=== PATIENT | male | born 1955 | race Caucasian/White ===

== ENCOUNTER 2018-03-26 22:10 | Emergency (ER) | payer OTHER ==
[2018-03-26] MEDS ORDERED: Lactated Ringers 1,000 ML IV ONE (22:15)
--- NOTE | 2018-03-26 22:21 | EDM.PDOC ---
ED HPI GENERAL MEDICAL PROBLEM - General Chief Complaint: General Stated Complaint: ILLNESS Time Seen by Provider: 03/26/18 22:10 Source of Information: Reports: Patient, EMS History Limitations: Reports: Other (no old records) - History of Present Illness INITIAL COMMENTS - FREE TEXT/NARRATIVE: 63 yo male here via EMS. He began the day with a heavy nose bleed from 6 am until noon. After the nose bleed he developed a cough and some [place], no fever. This afternoon he has had nausea and light-headedness whenever he gets up. He denies chest pain. Is visiting from out of town. Gets nose bleeds fairly often, is not on any anticoagulants or anti-platelet agents. No black or bloody stools. No abdominal pain or bloating. Onset: Today Onset Date: 03/26/18 Duration: Hour(s): Location: Reports: Face (nose bleed, self-limiting) Severity: Moderate Improves with: Reports: Rest Worsens with: Reports: Other (standing) Context: Reports: Other (uncertain) Associated Symptoms: Reports: Cough (since the nose bleed.), Nausea/Vomiting ( especially if he tries to eat/drink), Shortness of Breath (with exertion), Syncope (brief with getting up). Denies: Confusion, Chest Pain, Diaphoresis, Fever/Chills, Headaches, Rash, Seizure Treatments PRUNER: Reports: Other (see below) (Zofran ODT per EMS, reduced nausea) - Related Data Allergies Allergy/AdvReac Type Severity Reaction Status Date / Time No Known Allergies Allergy Verified 03/26/18 22:16 Home Meds: Home Meds ARIPiprazole [Abilify] 5 mg PO DAILY 03/26/18 [History] Amphetamine/Dextroamphetamine [Adderall] 10 mg PO BID 03/26/18 [History] Escitalopram [Lexapro] 1.5 tab PO DAILY 03/26/18 [History] Fluvastatin Sodium 40 mg PO BEDTIME 03/26/18 [History] Hydrochlorothiazide/Lisinopril [Lisinopril/HCTZ 20-12.5 MG] 1 tab PO DAILY 03/26 [History] Pantoprazole Sodium [Protonix] 40 mg PO DAILY 03/26/18 [History] Propranolol [Inderal] 10 mg PO TID 03/26/18 [History] Zolpidem Tartrate [Ambien] 5 mg PO BEDTIME 03/26/18 [History] hydrOXYzine HCl [Atarax] 1 - 2 tab PO TID PRN 03/26/18 [History] ED ROS GENERAL - Review of Systems Review Of Systems: See Below Constitutional: Reports: Weakness. Denies: Fever, Chills HEENT: Reports: Nosebleed (not since noon today.). Denies: Vertigo Respiratory: Reports: Shortness of Breath (with exertion), Cough (since his nose bleed). Denies: Wheezing, Pleuritic Chest Pain, Sputum, Hemoptysis Cardiovascular: Reports: Lightheadedness (with standing) Endocrine: Reports: No Symptoms GI/Abdominal: Reports: Nausea, Vomiting. Denies: Abdominal Pain, Black Stool, Bloody Stool, Constipation (no BM today), Diarrhea, Distension, Hematemesis, Hematochezia, Melena : Reports: No Symptoms Musculoskeletal: Reports: No Symptoms Skin: Reports: No Symptoms Neurological: Reports: No Symptoms Psychiatric: Reports: No Symptoms ED EXAM, GENERAL - Physical Exam Exam: See Below Exam Limited By: No Limitations General Appearance: Alert, WD/WN, No Apparent Distress Eye Exam: Bilateral Eye: Normal Inspection, PERRL Ears: Normal External Exam, Normal Canal, Hearing Grossly Normal Ear Exam: Bilateral Ear: Auricle Normal, Canal Normal Nose: Normal Inspection, Normal Mucosa, No Blood. No: Nasal Tenderness Throat/Mouth: Normal Inspection, Normal Lips, Normal Oropharynx, Normal Voice, No Airway Compromise Head: Atraumatic, Normocephalic Neck: Normal Inspection Respiratory/Chest: No Respiratory Distress, Lungs Clear, Normal Breath Sounds, No Accessory Muscle Use Cardiovascular: Regular Rate, Rhythm, No Edema GI/Abdominal: Normal Bowel Sounds, Soft, Non-Tender, No Distention Back Exam: Normal Inspection. No: CVA Tenderness (R), CVA Tenderness (L) Extremities: Normal Inspection, Normal Range of Motion, Non-Tender, No Pedal Edema Neurological: Alert, Oriented, CN II-XII Intact, Normal Cognition, No Motor/ Sensory Deficits Psychiatric: Normal Affect, Normal Mood Skin Exam: Warm, Dry, Intact, Normal Color, No Rash Lymphatic: No Adenopathy EKG INTERPRETATION EKG Date: 03/26/18 Time: 23:45 Rhythm: NSR Rate (Beats/Min): 66 [place]: Normal P-Wave: Present QRS: Normal ST-T: Normal QT: Normal Comparison: NA - No Prior EKG EKG Interpretation Comments: ? Tiny Q waves in inferior leads. Course - Vital Signs Last Recorded V/S: Last Vital Signs Temp 35.0 C L 03/26/18 22:19 Pulse 68 03/26/18 23:14 Resp 18 03/26/18 23:14 BP 116/39 L 03/26/18 23:14 Pulse Ox 96 03/26/18 23:14 - Orders/Labs/Meds Orders: Active Orders 24 hr Category Date Time Status EKG Documentation Completion [RC] ASDIRECTED Care 03/26/18 23:37 Active UA W/MICROSCOPIC [URIN] Stat Lab 03/26/18 22:15 Ordered EKG 12 Lead [EK] Routine Ther 03/26/18 23:36 Ordered Labs: Laboratory Tests 03/26/18 03/26/18 03/26/18 Range/Units 22:15 22:15 22:16 WBC 13.8 H (4.5-11.0) K/uL RBC 5.00 (4.30-5.90) M/uL Hgb 14.7 (12.0-15.0) g/dL Hct 42.4 (40.0-54.0) % MCV 85 (80-98) fL MCH 29 (27-31) pg MCHC 35 (32-36) % Plt Count 212 (150-400) K/uL Sodium 139 L (140-148) mmol/L Potassium 5.2 (3.6-5.2) mmol/L Chloride 104 (100-108) mmol/L Carbon Dioxide 28 (21-32) mmol/L Anion Gap 12.2 (5.0-14.0) mmol/L BUN 32 H (7-18) mg/dL Creatinine 1.4 H (0.8-1.3) mg/dL Est Cr Clr Drug Dosing 57.21 mL/min Estimated GFR (MDRD) 52 L (>60) Glucose 121 H (74-106) mg/dL Calcium 9.0 (8.5-10.1) mg/dL Troponin I 0.078 H* (0.000-0.056) ng/mL Meds: Medications Discontinued Medications Generic Name Dose Route Start Last Admin Trade Name Freq PRN Reason Stop Dose Admin Lactated Ringer's 1,000 mls @ 1,000 mls/hr 03/26/18 22:15 03/26/18 23:30 Ringers, Lactated IV 03/26/18 23:14 1,000 mls/hr BOLUS ONE Administration Departure - Departure Time of Disposition: 00:30 Disposition: DC/Tfer to Acute Hospital 02 Clinical Impression: Elevated troponin, Orthostatic hypotension, Mild dehydration Nausea and vomiting Qualifiers: Vomiting type: unspecified Vomiting Intractability: non-intractable Qualified Code(s): R11.2 - Nausea with vomiting, unspecified Clinical Impression: (Ruled Out): Hypotension - Discharge Information *PRESCRIPTION DRUG MONITORING PROGRAM REVIEWED*: Not Applicable *COPY OF PRESCRIPTION DRUG MONITORING REPORT IN PATIENT AUGUSTINE: Not Applicable Referrals: PCP,None [Primary Care Provider] - Forms: ED Department Discharge - My Orders Last 24 Hours: My Active Orders 03/26/18 22:15 UA W/MICROSCOPIC [URIN] Stat 03/26/18 23:36 EKG 12 Lead [EK] Routine 03/26/18 23:37 EKG Documentation Completion [RC] ASDIRECTED - Assessment/Plan Last 24 Hours: My Active Orders 03/26/18 22:15 UA W/MICROSCOPIC [URIN] Stat 03/26/18 23:36 EKG 12 Lead [EK] Routine 03/26/18 23:37 EKG Documentation Completion [RC] ASDIRECTED
== END 2018-03-27 00:50 ==
LOC: JP.ED 22:10
DX: E86.0 Dehydration (principal); I95.1 Orthostatic hypotension; R11.2 Nausea with vomiting, unspecified; R79.89 Other specified abnormal findings of blood chemistry; Z79.899 Other long term (current) drug therapy
CPT/HCPCS: 36415; 80048; 84484; 85027; 93005; 96360; 99285; J7120